=== PATIENT | female | born 1970 | race Caucasian/White ===

== ENCOUNTER 2016-07-18 19:20 | Emergency (ER) | payer OTHER ==
[~2016-07-18] VITALS: Ht 165.1 cm; Wt 84.5 kg
[2016-07-18 19:38] VITALS: Ht 165.1 cm; Wt 84.5 kg
[2016-07-18 22:09] LABS: BASOPHILS % 0.3 % (0.0-2.0); EOSINOPHILS # 0.1 10^3/ul (0.0-0.5); EOSINOPHILS % 1.3 % (0.0-7.0); HEMATOCRIT 36.4 % (37.0-47.0); HEMOGLOBIN 12.3 g/dl (12.0-16.0); LYMPHOCYTES # 2.1 10^3/ul (0.8-2.9); MEAN CORPUSCULAR HEMOGLOBIN 30.8 pg (29.0-33.0); MEAN CORPUSCULAR HGB CONC 33.6 g/dl (32.0-37.0); MEAN CORPUSCULAR VOLUME 91.7 fl (82.0-101.0); MEAN PLATELET VOLUME 8.3 fl (7.4-10.4); MONOCYTE # 0.7 10^3/ul (0.3-0.9); MONOCYTES % 7.6 % (0.0-11.0); NEUTROPHILS % 66.8 % (39.0-77.0); PLATELET COUNT 281 10^3/UL (140-440); RED BLOOD COUNT 3.97 10^6/ul (4.20-5.40); RED CELL DISTRIBUTION WIDTH 12.9 % (11.5-14.5); UNCORRECTED WBC 8.9 10^3/ul (4.8-10.8); WHITE BLOOD COUNT 8.9 10^3/ul (4.8-10.8)
[2016-07-18 22:13] LABS: CONDITION 1
[2016-07-18 22:15] LABS: INR 0.93; POTASSIUM 4.2 mmol/L (3.5-5.1); PROTIME 12.5 Sec (12.2-14.2)
[2016-07-18 22:16] LABS: PARTIAL THROMBOPLASTIN TIME 25.2 Sec (25.0-35.0)
[2016-07-18 22:17] LABS: CREATININE 0.63 mg/dl (0.44-1.00)
[2016-07-18 22:18] LABS: CALCIUM 9.2 mg/dl (8.4-10.2)
--- NOTE | 2016-07-18 22:19 | RADRPT ---
PROCEDURE: CT Head without contrast. CLINICAL INDICATION: Headaches TECHNIQUE: The study was performed utilizing a GE 64-slice multidetector CT scanner. Direct spiral axial CT images of the brain were obtained from the vertex to the skull base without contrast. The CTDI vol is 43.27 mGy and the DLP is 630.2 mGy-cm. The images were reviewed on a PACS workstation. COMPARISON: No prior studies are available for comparison. FINDINGS: The ventricles and cortical sulci are within normal limits. The monroe-white matter differentiation i s maintained. No intra or extra-axial fluid collection or mass effect or shift in the midline struc tures is seen. The visualized paranasal sinuses, mastoid air cells, orbits, and calvarium are unrem arkable. IMPRESSION: Unremarkable CT of the head without contrast. RPTAT: HPNM Physician Jorge Date Time Electronically viewed and signed by Physician Jorge on 07/18/2016 22:18 /
--- NOTE | 2016-07-18 22:52 | RADRPT ---
PROCEDURE: XR Chest. CLINICAL INDICATION: Chest pain and cough TECHNIQUE: A single portable view of the chest was obtained. COMPARISON: 04/22/2009 FINDINGS: The cardiomediastinal silhouette is within normal limits. The lungs and pleural spaces are clear. The soft tissues and osseous structures are unremarkable. IMPRESSION: No acute cardiopulmonary disease. RPTAT: HPNM Physician Jorge Date Time Electronically viewed and signed by Alvaro Mcnair Physician on 07/18/2016 22:52 /
[2016-07-18] MEDS ORDERED: TYL500 PO (22:58)
[2016-07-18] MEDS ORDERED: D-ME473S18 PO (22:58)
[2016-07-18] MEDS ORDERED: ONDA4TAB8 PO (22:58)
--- NOTE | 2016-07-18 23:25 | ERD ---
ER Documentation Chief Complaint Date/Time DATE: 07/18/16 TIME: 23:21 Chief Complaint COUGH AND PAIN WITH DEEP BREATH AND N/V WITH FEVER HPI This is a 46-year-old female presents to the ER with multiple complaints. Patient states that she started developing chest pain since Monday. She is also had a dry cough. She has associated back pain, body pain, headache, nausea , vomiting. Patient states she has had elevated blood pressure readings and she is worried she is having a stroke. She does have family history of hypertension. Chest pain is nonexertional. She denies any shortness of breath. Headache is located all over her head and patient states that she feels as if her head is going to explode. She denies any fevers or chills. Patient states that she may need antibiotics for her cough. ROS 12 point review of systems was done, all negative except per HPI. Medications Home Meds Active Scripts Ondansetron Hcl* (Zofran*) 4 Mg Tablet, 4 MG PO Q6H for NAUSEA AND/OR VOMITING, #30 TAB Prov:HARIKA MONTGOMERY 07/18/16 Acetaminophen* (Tylenol*) 500 Mg Tab, 500 MG PO Q4H Y for MILD PAIN LEVEL 1-3 for 3 Days, TAB Prov:HARIKA MONTGOMERY 07/18/16 Dextromethorphan Hb-Promethazine Hcl (Promethazine DM Syrup) 473 Ml Syrup, 5 ML PO Q6 Y for COUGH for 3 Days, ML Prov:HARIKA MONTGOMERY 07/18/16 PMhx/Soc Medical and Surgical Hx: pt denies Medical Hx, pt denies Surgical Hx Hx Alcohol Use: No Hx Substance Use: No Hx Tobacco Use: No Physical Exam Vitals Vital Signs Date Time Temp Pulse Resp B/P Pulse Ox O2 Delivery O2 Flow Rate FiO2 07/18/16 19:38 99.1 91 18 136/84 99 Physical Exam GENERAL: The patient is well developed and appropriate for usual state of health , in no apparent distress. HEENT: Atraumatic. Conjunctivae are pink. Pupils equal, round, and reactive to light. Extraocular muscles are grossly intact. Bilateral tympanic membranes are clear with no evidence of erythema, bulging or perforation. No sinus tenderness. NECK: C-spine is soft and supple. There is no cervical lymphadenopathy. CHEST: Clear to auscultation bilaterally. There are no rales, wheezes or rhonchi. HEART: Regular rate and rhythm. No murmurs, clicks, rubs or gallops. EXTREMITIES: Equal pulses bilaterally. There is no peripheral clubbing, cyanosis or edema. No focal swelling or erythema. Full range of motion. Grossly neurovascularly intact. NEURO: Alert and oriented. Cranial nerves II through XII are intact. Motor strength in all 4 extremities with 5/5 strength. Sensation grossly intact. Normal speech and gait. Negative Rhomberg. +2 DTRs. SKIN: There is no apparent rash or petechia. The skin is warm and dry. Result Diagram: 07/18/16213007/18/162130 Results 24 hrs Laboratory Tests Test 07/18/16 21:31 Activated Partial Thromboplast Time 25.2Sec Anion Gap 14 Basophils # 0.010^3/ul Basophils % 0.3% Blood Urea Nitrogen 11mg/dl Calcium Level 9.2mg/dl Carbon Dioxide Level 31mmol/L Chloride Level 100mmol/L Creatinine 0.63mg/dl Eosinophils # 0.110^3/ul Eosinophils % 1.3% Glucose Level 97mg/dl Hematocrit 36.4% Hemoglobin 12.3g/dl INR International Normalized Ratio 0.93 Lymphocytes # 2.110^3/ul Lymphocytes % 24.0% Mean Corpuscular Hemoglobin 30.8pg Mean Corpuscular Hemoglobin Concent 33.6g/dl Mean Corpuscular Volume 91.7fl Mean Platelet Volume 8.3fl Monocytes # 0.710^3/ul Monocytes % 7.6% Neutrophils # 6.010^3/ul Neutrophils % 66.8% Nucleated Red Blood Cells # 0.010^3/ul Nucleated Red Blood Cells % 0.0/100WBC Platelet Count 27640^3/UL Potassium Level 4.2mmol/L Prothrombin Time 12.5Sec Prothrombin Time Ratio 1.0 Red Blood Count 3.9710^6/ul Red Cell Distribution Width 12.9% Sodium Level 141mmol/L White Blood Count 8.910^3/ul Procedures/MDM Differential Diagnosis includes but is not limited to; tension headache, migraine headache, cluster headache, sinus headache, nonspecific febrile headache, trigeminal neurologia, subdural hematoma, subarachnoid bleeding, meningitis, encephalitis. Patient is neurologically intact with no focal neurological deficits. Patient's headache is likely a febrile headache. Patient's cough is likely viral in etiology. There is no evidence of pneumonia on x-ray. Patient's physical examination was completely benign. Patient does not appear dehydrated she is afebrile and well-appearing. At this time I do not believe patient needs antibiotics. Patient's EKG was 86/min no ST elevation or T-wave inversion patient for acute cardiac etiology is low. Patient will be sent home with promethazine, Tylenol, Zofran. She is to follow- up with her primary care doctor within 1-2 days and return to ER sooner if symptoms worsen. Patient's blood pressure was borderline, because patient mentioned that her blood pressure has been elevated I strongly advised her to follow-up with her primary care doctor regarding her blood pressure. My medical decision making was shared with the patient she understands and agrees with plan. Departure Diagnosis: Primary Impression: Multiple complaints Condition: Stable Patient Instructions: Adult Self-Care for Colds Additional Instructions: Call your primary care doctor TOMORROW for an appointment during the next 1-2 days.See the doctor sooner or return here if your condition worsens before your appointment time. HARIKA MONTGOMERY Jul 18, 2016 23:24
== END 2016-07-18 23:24 | disposition home or self-care (01) ==
LOC: FTE 19:20
DX: R07.9 Chest pain, unspecified (principal); R05 Cough; M54.9 Dorsalgia, unspecified; R51 Headache; R11.2 Nausea with vomiting, unspecified
CPT/HCPCS: 36415; 70450; 71010; 80048; 85025; 85610; 85730; 93005; Z7502

== ENCOUNTER 2017-07-11 04:03 | Observation (INO) | END 2017-07-11 18:18 | disposition home or self-care (01) ==